=== PATIENT | female | born 1995 | race Caucasian/White ===

== ENCOUNTER → 2021-03-11 22:48 | Observation (INO) ==
[2021-03-11 22:23] LABS: Bacteria,Urine Few per hpf (None-Few); Bilirubin,Urine Negative (Negative); Blood,Urine Negative (Negative); Calcium Oxalate Crystals,Urine Present per hpf; Clarity,Urine Turbid (Clear); Color,Urine Light-Yellow (Yellow); Glucose,Urine (UA) Normal (Normal); Ketones,Urine 40 mg/dL (Negative); Leukocyte Esterase,Urine Small (Negative); Mucus,Urine Few per lpf (None-Few); Nitrite,Urine Negative (Negative); Protein,Urine Trace mg/dL (Neg-Trace); RBC,Urine 0-3 per hpf (0-3); Specific Gravity,Urine 1.018 (1.010-1.025); Squamous Epithelial Cell,Urine Many per hpf (None-Few); Urobilinogen,Urine Normal (Normal)
== END | disposition home or self-care (01) ==
LOC: 1NENULAB
PROVIDERS: ADMIT Registered Nurse; ATTEND Registered Nurse

== ENCOUNTER 2021-03-27 09:16 | Inpatient (IN) ==
[2021-03-27] MEDS ORDERED: Metoclopramide 10 MG/2 ML VIAL IVP PRN (09:24)
[2021-03-27] MEDS ORDERED: Naloxone 0.4 MG/ML INJ IVP PRN (09:24)
[2021-03-27] MEDS ORDERED: Famotidine 20 MG/2 ML VIAL IVP PRN (09:24)
[2021-03-27] MEDS ORDERED: Ondansetron 4 MG/2 ML VIAL IVP PRN (09:24)
[2021-03-27 10:15] LABS: Basophils % 0.3 %; Eosinophils % 0.4 %; Hematocrit 36.7 % (35.3-44.9); Hemoglobin 12.4 g/dL (11.5-15.4); Immature Granulocytes % 0.6 % (0-4); Lymphocytes # 1.5 K/mcL (0.6-4.6); Mean Corpuscular HGB Conc 33.8 g/dL (31.6-35.5); Mean Corpuscular Hemoglobin 31.9 pg (28.0-33.3); Mean Corpuscular Volume 94.3 fL (83.0-100.0); Mean Platelet Volume 10.5 fL (9.4-12.4); Monocytes # 0.7 K/mcL (0.0-1.3); Monocytes % 7.3 %; Neutrophils # 6.7 K/mcL (1.6-8.9); Platelet Count 200 K/mcL (140-400); Red Blood Count 3.89 M/mcL (3.82-4.97); Red Cell Distribution Width 14.1 % (11.5-14.5); Segmented Neutrophils % 74.4 %
[2021-03-27 10:24] LABS: Amphetamine Screen,Urine Negative ng/mL (Cutoff=1000); Barbiturate Screen,Urine Negative ng/mL (Cutoff=200); Benzodiazepines Screen,Urine Negative ng/mL (Cutoff=200); Cannabinoid Screen,Urine Negative ng/mL (Cutoff = 50); Cocaine Screen,Urine Negative ng/mL (Cutoff= 300); Opiate Screen,Urine Negative ng/mL (Cutoff=300); Phencyclidine Screen,Urine Negative ng/mL (Cutoff=25)
[2021-03-27] MEDS: Ringers Solution, Lactated 1,000 ML IVC SCH ×2 (10:48→19:43)
[2021-03-27 10:51] LABS: Influenza A PCR Negative (Negative); Influenza B PCR Negative (Negative); Resp. Syncytial Virus PCR Negative (Negative)
[2021-03-27] MEDS: Oxytocin 20 units/ LR 1000 mL 20 UNIT/1,000 ML BAG IVC SCH (10:51)
[2021-03-27 11:26] LABS: SARS-CoV-2 by PCR (In House) Negative (Negative)
[2021-03-27] MEDS ORDERED: Epidural Premix (fent/bupiv) 110 ML EP ONE (19:17)
[2021-03-27] MEDS ORDERED: *HR* Midazolam HCl 2 MG/2 ML VIAL ONE (19:35)
[2021-03-27] MEDS ORDERED: EPHEDrine 50 MG/ML VIAL IVP PRN (20:20)
[2021-03-27] MEDS ORDERED: Epidural Premix (fent/bupiv) 110 ML EP SCH (20:30)
[2021-03-28] MEDS: Oxytocin 20 units/ LR 1000 mL 20 UNIT/1,000 ML BAG IVC SCH (04:50)
[2021-03-28] MEDS ORDERED: Oxytocin 20 units/ LR 1000 mL 20 UNIT/1,000 ML BAG IVC ONE (05:29)
[2021-03-28] MEDS ORDERED: Measles/Mumps/Rubella Vacc 0.5 ML VIAL SQ PRN (05:29)
[2021-03-28] MEDS ORDERED: Rho Immune Globulin 1,500 UNIT SYRINGE IM PRN (05:29)
[2021-03-28] MEDS ORDERED: Oxytocin 20 units/ LR 1000 mL 20 UNIT/1,000 ML BAG IVC SCH (05:29)
[2021-03-28] MEDS ORDERED: Sennosides 8.6 MG TABLET PO PRN (05:29)
[2021-03-28] MEDS ORDERED: Lanolin 7 G OINT...G. TP PRN (05:29)
[2021-03-28] MEDS ORDERED: Benzocaine/Menthol 56 GM AEROSOL SPRAY TP PRN (05:29)
[2021-03-28] MEDS: Acetaminophen 325 MG TABLET PO PRN ×3 (07:33→19:40)
[2021-03-28] MEDS: Ibuprofen 600 MG TABLET PO PRN ×3 (07:33→19:40)
[2021-03-28] MEDS: Prenatal Vit/FA 1 EACH TABLET PO SCH (07:33)
[2021-03-28] MEDS ORDERED: NON-FORMULARY MEDICATION 1 EACH EACH (Pnv No.95/Ferrous Fum/Folic Ac [Prenatal Caplet] 1 E PO SCH (09:00)
[2021-03-28] MEDS ORDERED: FERROUS SULFATE 27 MG PO SCH (09:00)
[2021-03-28 20:47] VITALS: BP 105/64; PULSE 83; TEMP 98; O2SAT 99
[2021-03-29] MEDS: Ibuprofen 600 MG TABLET PO PRN (02:52)
[2021-03-29] MEDS: Acetaminophen 325 MG TABLET PO PRN (02:52)
[2021-03-29] MEDS: Prenatal Vit/FA 1 EACH TABLET PO SCH (07:41)
[2021-03-29 08:24] LABS: Basophils % 0.3 %; Eosinophils # 0.1 K/mcL (0.0-0.6); Eosinophils % 1.4 %; Hematocrit 28.1 % (35.3-44.9); Immature Granulocytes % 0.4 % (0-4); Lymphocytes # 1.6 K/mcL (0.6-4.6); Lymphocytes % 16.1 %; Mean Corpuscular HGB Conc 33.1 g/dL (31.6-35.5); Mean Corpuscular Hemoglobin 31.6 pg (28.0-33.3); Mean Corpuscular Volume 95.6 fL (83.0-100.0); Mean Platelet Volume 10.5 fL (9.4-12.4); Monocytes # 0.6 K/mcL (0.0-1.3); Monocytes % 6.1 %; Neutrophils # 7.4 K/mcL (1.6-8.9); Platelet Count 165 K/mcL (140-400); Red Blood Count 2.94 M/mcL (3.82-4.97); Segmented Neutrophils % 75.7 %; White Blood Count 9.7 K/mcL (4.3-11.1)
[2021-03-29 08:28] LABS: Hemoglobin 9.3 g/dL (11.5-15.4)
== END 2021-03-29 11:04 | disposition home or self-care (01) | DRG 807 ==
LOC: 1NENULAB 09:16 → 1NENUOBS 03-28 05:31
PROVIDERS: ADMIT Student in an Organized Health Care Education/Training Program; ATTEND Student in an Organized Health Care Education/Training Program